=== PATIENT | female | born 1985 | race Asian ===

== ENCOUNTER 2018-08-03 15:16 | Emergency (ER) | payer SELFPAY ==
[2018-08-03] MEDS ORDERED: IBUPROFEN 600 MG TAB PO ONE (15:42)
[2018-08-03] MEDS ORDERED: SULFAMETHOX/TMP 800/160 MG 1 TAB PO ONE (15:58)
[2018-08-03] MEDS ORDERED: SULFAMET/TMP DS PREPACK#2 BTL TAKEHOME ONE (16:06)
--- NOTE | 2018-08-03 16:07 | EDPHY ---
H & P Stated Complaint: left elbow bursitis Time Seen by Provider: 08/03/18 15:32 HPI/ROS: CHIEF COMPLAINT: Elbow bursitis HISTORY OF PRESENT ILLNESS: The patient presents the ED with a 1 day history of a left elbow bursitis. She reports that she has been doing the "plank" for exercise more frequently. She denies any fever. She denies any painful range of motion. She reports mild associated soft tissue swelling. The patient denies any acute numbness or weakness. There is no history of immunosuppression or diabetes. REVIEW OF SYSTEMS: A comprehensive 10 point review of systems is otherwise negative aside from elements mentioned in the history of present illness. Source: Patient Exam Limitations: No limitations - Personal History LMP (Females 10-55): Now Current Tetanus/Diphtheria Vaccine: Yes Tetanus Vaccine Date: 2013 - Medical/Surgical History Hx Asthma: No Hx Chronic Respiratory Disease: No Hx Diabetes: No Hx Cardiac Disease: No Hx Renal Disease: No Hx Cirrhosis: No Hx Alcoholism: No Hx HIV/AIDS: No Hx Splenectomy or Spleen Trauma: No Other PMH: left tibial surgery, bilateral leg surgeries, MVP, depression - Social History Smoking Status: Never smoked - Physical Exam Exam: General Appearance: Alert, no distress Eyes: Pupils equal and round no pallor or injection ENT, Mouth: Mucous membranes moist Respiratory: There are no retractions, lungs are clear to auscultation Cardiovascular: Regular rate and rhythm Gastrointestinal: Abdomen is soft and nontender, no masses, bowel sounds normal Neurological: 5/5 strength noted all 4 extremities Skin: Mild erythema noted over the left olecranon bursa without appreciable effusion Musculoskeletal: Neck is supple nontender Extremities: symmetrical, full range of motion, no clinical evidence of septic arthritis Constitutional: Initial Vital Signs Temperature (C) 36.8 C 08/03/18 15:25 Heart Rate 95 08/03/18 15:25 Respiratory Rate 16 08/03/18 15:25 Blood Pressure 116/85 H 08/03/18 15:25 O2 Sat (%) 96 08/03/18 15:25 O2 Delivery Mode Room Air Allergies/Adverse Reactions: No Known Allergies Allergy (Unverified 08/03/18 15:29) Home Medications: Medication Instructions Recorded Azithromycin [Zithromax] 0 mg PO DAILY 11/18/15 Doxycycline Hyclate [Vibramycin 100 mg PO BID #20 cap 11/18/15 100 MG (*)] Hydrocodone/Acetaminophen 1 each PO Q4-6PRN PRN #20 tablet 11/18/15 [Hydrocodon-Acetaminophen 5-325] Metronidazole 0 mg PO 11/18/15 Promethazine HCl 25 mg PO DAILY #10 tablet 11/18/15 Sulfamethox/Tmp 800/160 mg 1 tab PO BID #20 tab 08/03/18 [Bactrim DS] Medical Decision Making ED Course/Re-evaluation: Patient presents to the ED with a mild olecranon bursitis. There is not significant bursal effusion or exudate. There is no clinical evidence of septic arthritis. The patient is neurologically intact. No additional areas of erythema are noted clinically. The patient will be started on Bactrim as an oral antibiotic treatment and discharged home with customary aftercare instructions and return precautions. She is given the contact number of our on- call orthopedic surgeon to arrange a follow-up check in the next 2-3 days. Differential Diagnosis: Differential diagnosis considered includes olecranon bursitis, septic arthritis , cellulitis, abscess Departure - Departure Disposition: Home, Routine, Self-Care Clinical Impression: Olecranon bursitis of left elbow Condition: Good Instructions: Elbow Bursitis (ED) Additional Instructions: 1. Take antibiotics as directed for the next 10 days. 2. Return to the ED for markedly increasing redness, pain, swelling or other concerns. 3. Please schedule a follow-up appointment with the orthopedic surgeon you have been referred to for a recheck in the next 2-3 days. Referrals: Pietro Osorio MD [Medical Doctor] - As per Instructions
[2018-08-03 16:18] VITALS: BP 122/87
== END 2018-08-03 16:18 | disposition home or self-care (01) ==
DX: M70.22 Olecranon bursitis, left elbow (principal); X50.0XXA Overexertion from strenuous movement or load, initial encounter; Y93.B9 Activity, other involving muscle strengthening exercises